=== PATIENT | male | born 1980 | race American Indian/Alaskan Native ===

== ENCOUNTER 2017-11-29 22:34 | Emergency (ER) | payer OTHER ==
[2017-11-29] MEDS ORDERED: ASPIRIN PO ONE (22:57)
[2017-11-29 23:38] LABS: Basophils % (Auto) 0.6 % (0.0-1.8); Eosinophils # (Auto) 0.1 K/mm3 (0.0-0.4); Eosinophils % (Auto) 0.8 % (0.0-4.3); Hematocrit 41.8 % (35.5-45.6); Hemoglobin 13.8 gm/dl (11.8-15.2); Lymphocytes # (Auto) 2.2 K/mm3 (1.2-5.4); Lymphocytes % (Auto) 31.1 % (13.4-35.0); Mean Corpuscular HGB Conc 33 % (32-34); Mean Corpuscular Hemoglobin 29 pg (28-32); Mean Corpuscular Volume 89 fl (84-94); Monocytes % (Auto) 13.6 % (0.0-7.3); Platelet Count 234 K/mm3 (140-440); Red Blood Count 4.73 M/mm3 (3.65-5.03); Red Cell Distribution Width 13.9 % (13.2-15.2)
[2017-11-29 23:45] LABS: BUN/Creatinine Ratio 10; Blood Urea Nitrogen 8 mg/dL (9-20); Calcium 9.2 mg/dL (8.4-10.2); Hemolysis Index 8
--- NOTE | 2017-11-30 09:21 | Emergency Department Report ---
ED Chest Pain HPI - General Chief Complaint: Chest Pain Stated Complaint: CHEST PAIN Time Seen by Provider: 11/30/17 08:54 Source: patient Mode of arrival: Ambulatory Limitations: No Limitations - History of Present Illness Initial Comments: 37-year-old male presents to the emergency department with complaint of some sharp midsternal chest pain that started 5 days ago and has been going on intermittently but recently it has started referring to the left shoulder and left upper back as some pressure. This is also intermittent. It is associated with some palpitations and shortness of breath. He denies any fever, nausea, vomiting, abdominal pain. He has a history of pancreatitis, gastritis and a cyst on his kidney. He denies any tobacco use but is an occasional marijuana smoker. He does not have a primary care physician. No known aggravating or alleviating factors. No recent travel or sick contacts at home. He did not take anything for her symptoms prior to presentation. Severity scale (0 -10): 9 - Related Data Home Medications Medication Instructions Recorded Confirmed Last Taken Nizatidine [Axid] 150 mg PO BID 09/26/13 09/26/13 09/26/13 Pantoprazole [Protonix] 40 mg PO QDAY 09/26/13 09/26/13 09/26/13 Promethazine [Phenergan] 25 mg PO Q6H PRN 09/26/13 09/26/13 09/26/13 Sucralfate [Carafate] 1 gm PO Q4HR 09/26/13 09/26/13 09/26/13 Previous Rx's Medication Instructions Recorded Last Taken Type Metoclopramide [Reglan] 10 mg PO TID #20 tab 07/03/13 09/26/13 Rx Doxycycline [Vibramycin CAP] 100 mg PO BID #20 capsule 09/26/13 Unknown Rx oxyCODONE /ACETAMINOPHEN [Percocet 1 tab PO Q6HR PRN #15 tablet 09/26/13 Rx 5/325 mg] Naproxen [Naprosyn TAB] 500 mg PO BID #12 tablet 11/27/13 Unknown Rx Promethazine [Phenergan] 25 mg PO Q6H PRN #15 tablet 11/27/13 Unknown Rx Naproxen [Naprosyn TAB] 500 mg PO BID #30 tablet 08/10/14 Unknown Rx Penicillin Vk [Veetids TAB] 500 mg PO QID #40 tablet 08/10/14 Unknown Rx Allergies Allergy/AdvReac Type Severity Reaction Status Date / Time No Known Allergies Allergy Verified 09/26/13 19:14 Heart Score - HEART Score History: Slightly suspicious EKG: Normal Age: < 45 Risk factors: 1-2 risk factors Troponin: < normal limit HEART Score: 1 - Critical Actions Critical Actions: 0-3 pts:0.9-1.7%risk of adverse cardiac event.Candidate for discharge ED Review of Systems ROS: Stated complaint: CHEST PAIN Other details as noted in HPI Comment: All other systems reviewed and negative Constitutional: denies: chills, fever Eyes: denies: eye pain, eye discharge, vision change ENT: denies: ear pain, throat pain Respiratory: shortness of breath. denies: cough Cardiovascular: chest pain, palpitations Gastrointestinal: denies: abdominal pain, nausea, diarrhea Genitourinary: denies: urgency, dysuria Musculoskeletal: arthralgia. denies: joint swelling Skin: denies: rash, lesions Neurological: denies: headache, weakness, paresthesias ED Past Medical Hx - Past Medical History Additional medical history: pancreatitis, gastritis, cyst on kidney - Social History Smoking Status: Never Smoker Substance Use Type: Marijuana - Medications Home Medications: Home Medications Medication Instructions Recorded Confirmed Last Taken Type Metoclopramide [Reglan] 10 mg PO TID #20 tab 07/03/13 09/26/13 Rx Doxycycline [Vibramycin CAP] 100 mg PO BID #20 capsule 09/26/13 Unknown Rx Nizatidine [Axid] 150 mg PO BID 09/26/13 09/26/13 09/26/13 History Pantoprazole [Protonix] 40 mg PO QDAY 09/26/13 09/26/13 09/26/13 History Promethazine [Phenergan] 25 mg PO Q6H PRN 09/26/13 09/26/13 09/26/13 History Sucralfate [Carafate] 1 gm PO Q4HR 09/26/13 09/26/13 09/26/13 History oxyCODONE /ACETAMINOPHEN [Percocet 1 tab PO Q6HR PRN #15 tablet 09/26/13 Rx 5/325 mg] Naproxen [Naprosyn TAB] 500 mg PO BID #12 tablet 11/27/13 Unknown Rx Promethazine [Phenergan] 25 mg PO Q6H PRN #15 tablet 11/27/13 Unknown Rx Naproxen [Naprosyn TAB] 500 mg PO BID #30 tablet 08/10/14 Unknown Rx Penicillin Vk [Veetids TAB] 500 mg PO QID #40 tablet 08/10/14 Unknown Rx ED Physical Exam - General Limitations: No Limitations - Other Other exam information: GENERAL: The patient is well-developed well-nourished. HENT: Normocephalic. Atraumatic. Patient has moist mucous membranes. EYES: Extraocular motions are intact. Pupils equal reactive to light bilaterally. NECK: Supple. Trachea is midline. CHEST/LUNGS: Clear to auscultation. There is no respiratory distress noted. HEART/CARDIOVASCULAR: Regular. There is no tachycardia. There is no murmur. ABDOMEN: Abdomen is soft, nontender. Patient has normal bowel sounds. There is no abdominal distention. SKIN: Skin is warm and dry. NEURO: The patient is awake, alert, and oriented. The patient is cooperative. The patient has no focal neurologic deficits. The patient has normal speech. MUSCULOSKELETAL: There is no tenderness or deformity. There is no limitation range of motion. There is no evidence of acute injury. ED Course Vital Signs 11/29/17 11/30/17 11/30/17 22:46 04:58 09:52 Temperature 98.7 F 98.0 F Pulse Rate 100 H 69 70 Respiratory 18 18 18 Rate Blood Pressure 132/88 120/84 Blood Pressure 122/84 [Right] O2 Sat by Pulse 98 97 98 Oximetry LUIS score - Luis Score Age > 65: (0) No Aspirin use within the Past 7 Days: (0) No 3 or more CAD Risk Factors: (0) No 2 or more Angina events in past 24 hrs: (0) No Known CAD with more than 50% Stenosis: (0) No Elevated Cardiac Markers: (0) No ST Deviation Greater than 0.5mm: (0) No LUIS Score: 0 ED Medical Decision Making - Lab Data Result diagrams: 11/29/17 23:08 11/29/17 23:08 - EKG Data -: EKG Interpreted by Vt EKG shows normal: sinus rhythm, axis, intervals, QRS complexes, ST-T waves Rate: normal - EKG Data When compared to previous EKG there are: previous EKG unavailable Interpretation: normal EKG - Radiology Data Radiology results: image reviewed interpreted by me: Chest x-ray does not show any acute process. There are no pleural effusions, obvious pneumonia and there is no pneumothorax. - Medical Decision Making Patient presented originally with some midsternal chest pain and then radiated towards the left shoulder and/or back with some intermittent palpitations and/ or shortness of breath. EKG does not show any signs of ST elevation NC, ischemia or dysrhythmia. Labs are unremarkable including negative troponins 3 , negative d-dimer and normal thyroid function. Chest x-ray does not show any acute process. He has low on the heart score criteria and has a LUIS score of one of his pain is considered angina, which I do not believe it is, and 0 if not. His vital signs when stable throughout his ED course. His only risk factor for coronary artery disease is tobacco use and we discussed smoking cessation. He appears safe for discharge home at this time. He was given a referral for primary care and cardiology and encouraged to return to the emergency Department with any worsening of symptoms or any acute distress. - Differential Diagnosis costochondritis, GERD, hypothyroidism, NC, PE Critical Care Time: No Critical care attestation.: If time is entered above; I have spent that time in minutes in the direct care of this critically ill patient, excluding procedure time. ED Disposition Clinical Impression: Palpitations Chest pain Qualifiers: Chest pain type: unspecified Qualified Code(s): R07.9 - Chest pain, unspecified Disposition: DC- TO HOME OR SELFCARE Is pt being admited?: No Condition: Stable Instructions: Chest Pain (ED), Palpitations (ED) Additional Instructions: Please follow up with a primary care physician the next few days. I have given you a referral for a local solo truck driver, Dr. Watters, to follow up regarding your chest pain and/or palpitations. Return to the emergency Department with any worsening of your symptoms or any acute distress. Referrals: KATE REZA MD [Primary Care Provider] - 3-5 Days SEBAS WATTERS MD [Staff Physician] - 3-5 Days ANNIE SNYDER MD [Staff Physician] - 3-5 Days [facility] [Outside] - 3-5 Days Time of Disposition: 10:29
--- NOTE | 2017-11-30 09:30 | XRay Report ---
ROUTINE CHEST, TWO VIEWS: HISTORY: chest pain. The trachea, heart, mediastinal contour, lung mayberry and bony thorax are unremarkable. IMPRESSION: Unremarkable chest x-ray.
[2017-11-30 09:54] VITALS: BP 122/84
== END 2017-11-30 10:49 | disposition home or self-care (01) ==
LOC: ED 22:34
DX: R07.89 Other chest pain (principal); F12.10 Cannabis abuse, uncomplicated
CPT/HCPCS: 36415; 71046; 80048; 84443; 84484; 85025; 85379; 93005; 93010; 99284

== ENCOUNTER 2018-03-28 19:59 | Emergency (ER) | payer SELFPAY ==
[2018-03-28 20:24] VITALS: BP 118/77
[2018-03-28] MEDS ORDERED: ASPIRIN PO ONE (20:24)
[2018-03-28 21:22] LABS: Basophils # (Auto) 0.1 K/mm3 (0.0-0.1); Eosinophils # (Auto) 0.2 K/mm3 (0.0-0.4); Eosinophils % (Auto) 2.3 % (0.0-4.3); Hematocrit 41.4 % (35.5-45.6); Hemoglobin 13.6 gm/dl (11.8-15.2); Lymphocytes # (Auto) 1.2 K/mm3 (1.2-5.4); Lymphocytes % (Auto) 17.2 % (13.4-35.0); Mean Corpuscular HGB Conc 33 % (32-34); Mean Corpuscular Hemoglobin 29 pg (28-32); Mean Corpuscular Volume 88 fl (84-94); Monocytes # (Auto) 0.7 K/mm3 (0.0-0.8); Monocytes % (Auto) 10.5 % (0.0-7.3); Platelet Count 239 K/mm3 (140-440); Red Cell Distribution Width 13.5 % (13.2-15.2)
[2018-03-28 21:45] LABS: BUN/Creatinine Ratio 13; Blood Urea Nitrogen 12 mg/dL (9-20); Calcium 9.6 mg/dL (8.4-10.2); Hemolysis Index 8
[2018-03-28] MEDS ORDERED: TYLENOL PO ONE (22:38)
== END 2018-03-29 01:25 | disposition left against medical advice (07) ==
LOC: ED 19:59
DX: R07.9 Chest pain, unspecified (principal); R06.02 Shortness of breath; Z53.21 Procedure and treatment not carried out due to patient leaving prior to being seen by health care provider
CPT/HCPCS: 36415; 80048; 84484; 85025; 93005; 93010